=== PATIENT | male | born 1940 | race Caucasian/White ===

== ENCOUNTER 2022-08-12 21:08 | Emergency (ER) | payer OTHER ==
[~2022-08-12] VITALS: Ht 160 cm; Wt 73.9 kg
[2022-08-12 21:30] VITALS: BP_SYST 173
--- NOTE | 2022-08-12 21:44 | NUR ---
Patient triaged and placed in waiting room. VSS and patient appears in no acute distress at this time. Accompanied by SELF, awaiting available bed, and MD notified of need for MSE.
--- NOTE | 2022-08-12 22:37 | NUR ---
DR. ALVAREZ SEEING PATIENT IN TRIAGE ROOM
--- NOTE | 2022-08-12 23:00 | NUR ---
Patient to ER bed 07 to gown for evaluation. Side rails up. Report given to LUCY SWARTZ.
[2022-08-12 23:02] LABS: BASOPHILS % (AUTO) 0.5 % (0.0-2.0); EOSINOPHILS # (AUTO) 0.1 K/uL (0.0-0.4); EOSINOPHILS % (AUTO) 2.5 % (0.0-4.0); HEMATOCRIT 40.4 % (36-54); HEMOGLOBIN 13.2 g/dL (14.0-18.0); LYMPHOCYTES # (AUTO) 1.7 K/uL (1.0-5.5); LYMPHOCYTES % (AUTO) 30.1 % (20.5-51.5); MEAN CORPUSCULAR HEMOGLOBIN 27 pg (27-31); MEAN CORPUSCULAR HGB CONC 33 % (32-36); MEAN CORPUSCULAR VOLUME 84 fL (79.0-98.0); MONOCYTES # (AUTO) 0.5 K/uL (0.0-1.0); MONOCYTES % (AUTO) 8.6 % (1.7-9.3); NEUTROPHILS # (AUTO) 3.3 K/uL (1.8-7.7); NEUTROPHILS % (AUTO) 58.3 % (40.0-70.0); PLATELET COUNT (AUTO) 177 K/uL (130-430); RED BLOOD CELL COUNT(AUTO) 4.83 MIL/uL (4.2-6.2); RED CELL DISTRIBUTION WIDTH 15.4 % (9.0-15.0); WHITE BLOOD COUNT (AUTO) 5.6 K/uL (4.8-10.8)
[2022-08-12 23:14] LABS: ALANINE AMINOTRANSFERASE 32 U/L (12-78); ALBUMIN 3.9 g/dL (3.4-4.8); ANION GAP 9 (5-15); ASPARTATE AMINOTRANSFERASE 25 U/L (10-37); CALCIUM 8.8 mg/dL (8.4-11.0); CHLORIDE 101 mmol/L (98-107); CREATININE 1.93 mg/dL (0.55-1.30); GLUCOSE 106 mg/dL (70-99); LIPASE 199 U/L (73-393); TOTAL BILIRUBIN 0.3 mg/dL (0.0-1.0); UREA NITROGEN, BLOOD 32 mg/dL (8-21)
[2022-08-13 01:11] VITALS: BP_SYST 152
--- NOTE | 2022-08-13 01:11 | NUR ---
Patient given written and verbal discharge instructions and verbalizes understanding. ER MD discussed with patient the results and treatment provided. Patient in stable condition. ID arm band removed. NO RX GIVEN. Patient educated on pain management and to follow up with PMD. Pain Scale 0/10 Opportunity for questions provided and answered.
== END 2022-08-13 01:11 | disposition home or self-care (01) ==
LOC: SED 21:08
DX: K62.5 Hemorrhage of anus and rectum (principal); R10.32 Left lower quadrant pain; R19.7 Diarrhea, unspecified; R06.02 Shortness of breath; I10 Essential (primary) hypertension; Z88.8 Allergy status to other drugs, medicaments and biological substances; Z79.899 Other long term (current) drug therapy
CPT/HCPCS: 36415; 70490; 76376; 80053; 83605; 83690; 85025; 99284

== ENCOUNTER 2022-09-02 08:46 | Inpatient (IN) | payer OTHER ==
[~2022-09-02] VITALS: Ht 160 cm; Wt 75.7 kg
[2022-09-02 09:00] VITALS: BP_SYST 161
[2022-09-02 10:19] LABS: BASOPHILS % (AUTO) 0.3 % (0.0-2.0); EOSINOPHILS % (AUTO) 0.5 % (0.0-4.0); HEMATOCRIT 34.9 % (36-54); HEMOGLOBIN 11.6 g/dL (14.0-18.0); LYMPHOCYTES # (AUTO) 1.5 K/uL (1.0-5.5); LYMPHOCYTES % (AUTO) 27.8 % (20.5-51.5); MEAN CORPUSCULAR HEMOGLOBIN 28 pg (27-31); MEAN CORPUSCULAR HGB CONC 33 % (32-36); MEAN CORPUSCULAR VOLUME 83 fL (79.0-98.0); MONOCYTES # (AUTO) 0.3 K/uL (0.0-1.0); MONOCYTES % (AUTO) 5.3 % (1.7-9.3); NEUTROPHILS # (AUTO) 3.6 K/uL (1.8-7.7); NEUTROPHILS % (AUTO) 66.1 % (40.0-70.0); PLATELET COUNT (AUTO) 187 K/uL (130-430); RED BLOOD CELL COUNT(AUTO) 4.19 MIL/uL (4.2-6.2); RED CELL DISTRIBUTION WIDTH 15.3 % (9.0-15.0); WHITE BLOOD COUNT (AUTO) 5.4 K/uL (4.8-10.8)
[2022-09-02 10:39] LABS: ANION GAP 8 (5-15); CALCIUM 8.3 mg/dL (8.4-11.0); CHLORIDE 105 mmol/L (98-107); CREATININE 1.03 mg/dL (0.55-1.30); GLUCOSE 90 mg/dL (70-99); UREA NITROGEN, BLOOD 16 mg/dL (8-21)
[2022-09-02 10:43] LABS: ALANINE AMINOTRANSFERASE 29 U/L (12-78); ALBUMIN 3.1 g/dL (3.4-4.8); AMYLASE 49 U/L (0-100); ASPARTATE AMINOTRANSFERASE 21 U/L (10-37); LIPASE 104 U/L (73-393); TOTAL BILIRUBIN 0.4 mg/dL (0.0-1.0)
[2022-09-02 11:35] LABS: INR 1.1 (0.80-1.20); PROTHROMBIN TIME 11.6 SECS (9.5-12.5)
[2022-09-02] MEDS ORDERED: D5/0.45 NS 1,000 ML IV ONE (12:15)
[2022-09-02] MEDS ORDERED: TAMS-11 PO (12:17)
[2022-09-02] MEDS ORDERED: LEVO75TA7 PO (12:17)
[2022-09-02] MEDS ORDERED: FENO160 PO (12:17)
[2022-09-02] MEDS ORDERED: ESOM40CA PO (12:17)
[2022-09-02] MEDS ORDERED: ASPI-1393 PO (12:17)
[2022-09-02] MEDS ORDERED: LOSA100T4 PO (12:17)
[2022-09-02 14:19] VITALS: BP_SYST 161
[2022-09-02 16:00] VITALS: BP_SYST 142
[2022-09-02 20:00] VITALS: BP_SYST 157
[2022-09-03] VITALS: BP_SYST 139
[2022-09-03 07:50] VITALS: BP_SYST 145
[2022-09-03] MEDS ORDERED: ACETAMINOPHEN 325 MG TABLET PO PRN (11:00)
[2022-09-03] MEDS ORDERED: ONDANSETRON HCL 4 MG/2 ML VIAL IVP PRN (11:00)
[2022-09-03] MEDS ORDERED: HYDROcodone/ACETAMIN 10-325 MG TAB PO PRN (11:00)
[2022-09-03] MEDS ORDERED: LORazepam 2 MG/ML VIAL IVP PRN (11:00)
[2022-09-03] MEDS ORDERED: NALOXONE HCL 0.4 MG/ML AMP (NARCAN) IVP PRN ×2 (11:00)
[2022-09-03] MEDS ORDERED: HYDROcodone/ACETAMIN 5-325 MG TAB (NORCO/ VICODIN) PO PRN (11:00)
[2022-09-03 11:17] VITALS: BP_SYST 147
[2022-09-03] MEDS ORDERED: LOSARTAN POTASSIUM 50 MG TABLET (COZAAR) PO ONE (16:30)
[2022-09-03 17:18] VITALS: BP_SYST 150
[2022-09-04] VITALS: BP_SYST 149
[2022-09-04] MEDS: LEVOTHYROXINE SODIUM 0.075 MG TABLET PO SCH (06:28)
[2022-09-04 07:14] LABS: BASOPHILS % (AUTO) 0.4 % (0.0-2.0); EOSINOPHILS # (AUTO) 0.1 K/uL (0.0-0.4); EOSINOPHILS % (AUTO) 1.3 % (0.0-4.0); HEMATOCRIT 35.4 % (36-54); HEMOGLOBIN 11.9 g/dL (14.0-18.0); LYMPHOCYTES # (AUTO) 2.2 K/uL (1.0-5.5); LYMPHOCYTES % (AUTO) 34.3 % (20.5-51.5); MEAN CORPUSCULAR HEMOGLOBIN 28 pg (27-31); MEAN CORPUSCULAR HGB CONC 34 % (32-36); MEAN CORPUSCULAR VOLUME 83 fL (79.0-98.0); MONOCYTES # (AUTO) 0.6 K/uL (0.0-1.0); MONOCYTES % (AUTO) 9.1 % (1.7-9.3); NEUTROPHILS # (AUTO) 3.5 K/uL (1.8-7.7); NEUTROPHILS % (AUTO) 54.9 % (40.0-70.0); PLATELET COUNT (AUTO) 180 K/uL (130-430); RED BLOOD CELL COUNT(AUTO) 4.29 MIL/uL (4.2-6.2); WHITE BLOOD COUNT (AUTO) 6.5 K/uL (4.8-10.8)
[2022-09-04 07:45] LABS: ALANINE AMINOTRANSFERASE 30 U/L (12-78); ALBUMIN 2.9 g/dL (3.4-4.8); ANION GAP 8 (5-15); ASPARTATE AMINOTRANSFERASE 25 U/L (10-37); CALCIUM 8.2 mg/dL (8.4-11.0); CHLORIDE 103 mmol/L (98-107); CREATININE 1.09 mg/dL (0.55-1.30); GLUCOSE 95 mg/dL (70-99); TOTAL BILIRUBIN 0.5 mg/dL (0.0-1.0); UREA NITROGEN, BLOOD 10 mg/dL (8-21)
[2022-09-04 08:17] VITALS: BP_SYST 147
[2022-09-04] MEDS: ASPIRIN 81 MG TABLET(ECOTRIN) PO SCH (08:34)
[2022-09-04] MEDS: TAMSULOSIN HCL 0.4 MG CAP PO SCH (08:35)
[2022-09-04] MEDS: FENOFIBRATE 160 MG TABLET PO SCH (08:35)
[2022-09-04] MEDS: PANTOPRAZOLE SODIUM 40 MG TAB PO SCH (08:36)
[2022-09-04] MEDS: LOSARTAN POTASSIUM 50 MG TABLET (COZAAR) PO SCH (08:38)
[2022-09-04] MEDS ORDERED: OMEPRAZOLE Non-Formulary 20 MG CAPSULE.DR PO SCH (09:00)
[2022-09-04] MEDS ORDERED: POTASSIUM CHLORIDE 20 MEQ TAB.PRT.SR PO ONE (09:30)
[2022-09-04 15:00] VITALS: BP_SYST 129
[2022-09-04] MEDS: guaiFENesin/DEXTROMETHORPHAN 10 ML UDC PO PRN ×2 (18:25→22:28)
[2022-09-05] VITALS: BP_SYST 139
[2022-09-05] MEDS: LEVOTHYROXINE SODIUM 0.075 MG TABLET PO SCH (06:41)
[2022-09-05 07:02] LABS: BASOPHILS % (AUTO) 0.3 % (0.0-2.0); EOSINOPHILS # (AUTO) 0.2 K/uL (0.0-0.4); EOSINOPHILS % (AUTO) 2.2 % (0.0-4.0); LYMPHOCYTES # (AUTO) 2.6 K/uL (1.0-5.5); LYMPHOCYTES % (AUTO) 34.6 % (20.5-51.5); MEAN CORPUSCULAR HEMOGLOBIN 28 pg (27-31); MEAN CORPUSCULAR HGB CONC 33 % (32-36); MEAN CORPUSCULAR VOLUME 83 fL (79.0-98.0); MONOCYTES # (AUTO) 0.6 K/uL (0.0-1.0); MONOCYTES % (AUTO) 7.8 % (1.7-9.3); NEUTROPHILS # (AUTO) 4.2 K/uL (1.8-7.7); NEUTROPHILS % (AUTO) 55.1 % (40.0-70.0); PLATELET COUNT (AUTO) 178 K/uL (130-430); RED BLOOD CELL COUNT(AUTO) 4.37 MIL/uL (4.2-6.2); RED CELL DISTRIBUTION WIDTH 15.1 % (9.0-15.0); WHITE BLOOD COUNT (AUTO) 7.6 K/uL (4.8-10.8)
[2022-09-05 07:39] LABS: ANION GAP 7 (5-15); CALCIUM 8.3 mg/dL (8.4-11.0); CHLORIDE 106 mmol/L (98-107); CREATININE 1.08 mg/dL (0.55-1.30); GLUCOSE 98 mg/dL (70-99); UREA NITROGEN, BLOOD 8 mg/dL (8-21)
[2022-09-05 08:35] VITALS: BP_SYST 137
[2022-09-05] MEDS: FENOFIBRATE 160 MG TABLET PO SCH (09:47)
[2022-09-05] MEDS: TAMSULOSIN HCL 0.4 MG CAP PO SCH (09:47)
[2022-09-05] MEDS: LOSARTAN POTASSIUM 50 MG TABLET (COZAAR) PO SCH (09:47)
[2022-09-05] MEDS: ASPIRIN 81 MG TABLET(ECOTRIN) PO SCH (09:48)
[2022-09-05] MEDS: PANTOPRAZOLE SODIUM 40 MG TAB PO SCH (09:48)
[2022-09-05] MEDS: guaiFENesin/DEXTROMETHORPHAN 10 ML UDC PO PRN ×2 (10:52→20:10)
[2022-09-05 12:03] VITALS: BP_SYST 149
[2022-09-05 20:00] VITALS: BP_SYST 152
[2022-09-06 02:33] VITALS: BP_SYST 146
[2022-09-06] MEDS: LEVOTHYROXINE SODIUM 0.075 MG TABLET PO SCH (06:39)
[2022-09-06 08:00] VITALS: BP_SYST 154
[2022-09-06] MEDS: PANTOPRAZOLE SODIUM 40 MG TAB PO SCH (09:56)
[2022-09-06] MEDS: TAMSULOSIN HCL 0.4 MG CAP PO SCH (09:56)
[2022-09-06] MEDS: FENOFIBRATE 160 MG TABLET PO SCH (09:56)
[2022-09-06] MEDS: ASPIRIN 81 MG TABLET(ECOTRIN) PO SCH (09:56)
[2022-09-06] MEDS: LOSARTAN POTASSIUM 50 MG TABLET (COZAAR) PO SCH (09:57)
[2022-09-06 14:41] VITALS: BP_SYST 146
[2022-09-06 20:00] VITALS: BP_SYST 147
[2022-09-06] MEDS: guaiFENesin/DEXTROMETHORPHAN 10 ML UDC PO PRN (20:03)
[2022-09-07] VITALS: BP_SYST 124
[2022-09-07] MEDS: LEVOTHYROXINE SODIUM 0.075 MG TABLET PO SCH (06:37)
[2022-09-07 08:00] VITALS: BP_SYST 139
[2022-09-07] MEDS: TAMSULOSIN HCL 0.4 MG CAP PO SCH (09:55)
[2022-09-07] MEDS: PANTOPRAZOLE SODIUM 40 MG TAB PO SCH (09:56)
[2022-09-07] MEDS: ASPIRIN 81 MG TABLET(ECOTRIN) PO SCH (09:56)
[2022-09-07] MEDS: FENOFIBRATE 160 MG TABLET PO SCH (09:56)
[2022-09-07] MEDS: LOSARTAN POTASSIUM 50 MG TABLET (COZAAR) PO SCH (09:57)
[2022-09-07 12:00] VITALS: BP_SYST 132
[2022-09-07] MEDS: guaiFENesin/DEXTROMETHORPHAN 10 ML UDC PO PRN ×2 (14:59→22:18)
[2022-09-07 20:00] VITALS: BP_SYST 136
[2022-09-08] VITALS: BP_SYST 128
[2022-09-08] MEDS: LEVOTHYROXINE SODIUM 0.075 MG TABLET PO SCH (06:19)
[2022-09-08 06:35] LABS: BASOPHILS % (AUTO) 0.5 % (0.0-2.0); EOSINOPHILS # (AUTO) 0.1 K/uL (0.0-0.4); EOSINOPHILS % (AUTO) 2.4 % (0.0-4.0); HEMATOCRIT 34.3 % (36-54); HEMOGLOBIN 11.5 g/dL (14.0-18.0); LYMPHOCYTES # (AUTO) 2.3 K/uL (1.0-5.5); LYMPHOCYTES % (AUTO) 41.4 % (20.5-51.5); MEAN CORPUSCULAR HEMOGLOBIN 27 pg (27-31); MEAN CORPUSCULAR HGB CONC 33 % (32-36); MEAN CORPUSCULAR VOLUME 82 fL (79.0-98.0); MONOCYTES # (AUTO) 0.3 K/uL (0.0-1.0); NEUTROPHILS # (AUTO) 2.8 K/uL (1.8-7.7); NEUTROPHILS % (AUTO) 49.7 % (40.0-70.0); PLATELET COUNT (AUTO) 188 K/uL (130-430); RED CELL DISTRIBUTION WIDTH 15.2 % (9.0-15.0); WHITE BLOOD COUNT (AUTO) 5.5 K/uL (4.8-10.8)
[2022-09-08 08:00] VITALS: BP_SYST 143
[2022-09-08] MEDS: ASPIRIN 81 MG TABLET(ECOTRIN) PO SCH (08:28)
[2022-09-08] MEDS: TAMSULOSIN HCL 0.4 MG CAP PO SCH (08:28)
[2022-09-08] MEDS: FENOFIBRATE 160 MG TABLET PO SCH (08:29)
[2022-09-08] MEDS: PANTOPRAZOLE SODIUM 40 MG TAB PO SCH (08:29)
[2022-09-08] MEDS: LOSARTAN POTASSIUM 50 MG TABLET (COZAAR) PO SCH (08:29)
[2022-09-08 20:00] VITALS: BP_SYST 137
[2022-09-09 04:00] VITALS: BP_SYST 155
[2022-09-09 06:13] LABS: BILIRUBIN,URINE NEGATIVE (NEGATIVE); BLOOD, URINE TRACE (NEGATIVE); CLARITY/URINE CLEAR (CLEAR); COLOR,URINE YELLOW (YELLOW); GLUCOSE,URINE NEGATIVE (NEGATIVE); KETONES,URINE NEGATIVE (NEGATIVE); LEUKOCYTE ESTERASE ,URINE NEGATIVE (NEGATIVE); NITRITE, URINE NEGATIVE (NEGATIVE); PROTEIN URINE TRACE (NEGATIVE)
[2022-09-09 06:20] LABS: BACTERIA,URINE None Seen /HPF (None Seen); WBC,URINE 0-3 /HPF (0-3)
[2022-09-09] MEDS: LEVOTHYROXINE SODIUM 0.075 MG TABLET PO SCH (06:35)
[2022-09-09 06:52] LABS: BASOPHILS % (AUTO) 0.5 % (0.0-2.0); EOSINOPHILS # (AUTO) 0.2 K/uL (0.0-0.4); EOSINOPHILS % (AUTO) 2.9 % (0.0-4.0); HEMATOCRIT 32.8 % (36-54); LYMPHOCYTES % (AUTO) 38.5 % (20.5-51.5); MEAN CORPUSCULAR HEMOGLOBIN 28 pg (27-31); MEAN CORPUSCULAR HGB CONC 34 % (32-36); MEAN CORPUSCULAR VOLUME 82 fL (79.0-98.0); MONOCYTES # (AUTO) 0.3 K/uL (0.0-1.0); NEUTROPHILS # (AUTO) 2.7 K/uL (1.8-7.7); NEUTROPHILS % (AUTO) 52.1 % (40.0-70.0); PLATELET COUNT (AUTO) 196 K/uL (130-430); RED CELL DISTRIBUTION WIDTH 14.9 % (9.0-15.0); WHITE BLOOD COUNT (AUTO) 5.3 K/uL (4.8-10.8)
[2022-09-09 07:16] LABS: ALANINE AMINOTRANSFERASE 43 U/L (12-78); ALBUMIN 2.5 g/dL (3.4-4.8); ANION GAP 7 (5-15); ASPARTATE AMINOTRANSFERASE 35 U/L (10-37); CALCIUM 8.2 mg/dL (8.4-11.0); CHLORIDE 107 mmol/L (98-107); CREATININE 1.04 mg/dL (0.55-1.30); GLUCOSE 91 mg/dL (70-99); TOTAL BILIRUBIN 0.5 mg/dL (0.0-1.0); UREA NITROGEN, BLOOD 10 mg/dL (8-21)
[2022-09-09 08:00] VITALS: BP_SYST 149
[2022-09-09] MEDS ORDERED: POTASSIUM CHLORIDE 40 MEQ in NS 250 ML IV ONE (08:45)
[2022-09-09] MEDS: ASPIRIN 81 MG TABLET(ECOTRIN) PO SCH (09:00)
[2022-09-09] MEDS: PANTOPRAZOLE SODIUM 40 MG TAB PO SCH (09:15)
[2022-09-09] MEDS: TAMSULOSIN HCL 0.4 MG CAP PO SCH (09:15)
[2022-09-09] MEDS: FENOFIBRATE 160 MG TABLET PO SCH (09:16)
[2022-09-09] MEDS: LOSARTAN POTASSIUM 50 MG TABLET (COZAAR) PO SCH (09:17)
[2022-09-09 11:25] VITALS: BP_SYST 133
[2022-09-09] MEDS ORDERED: POTASSIUM CHLORIDE 20 MEQ TAB.PRT.SR PO ONE (14:00)
[2022-09-09 15:47] VITALS: BP_SYST 147
[2022-09-09 20:00] VITALS: BP_SYST 147
[2022-09-10 04:00] VITALS: BP_SYST 153
[2022-09-10] MEDS: LEVOTHYROXINE SODIUM 0.075 MG TABLET PO SCH (06:48)
[2022-09-10] MEDS: FENOFIBRATE 160 MG TABLET PO SCH (08:46)
[2022-09-10] MEDS: LOSARTAN POTASSIUM 50 MG TABLET (COZAAR) PO SCH (08:46)
[2022-09-10] MEDS: TAMSULOSIN HCL 0.4 MG CAP PO SCH (08:46)
[2022-09-10] MEDS: PANTOPRAZOLE SODIUM 40 MG TAB PO SCH (08:47)
[2022-09-10] MEDS: ASPIRIN 81 MG TABLET(ECOTRIN) PO SCH (08:47)
[2022-09-10 10:57] VITALS: BP_SYST 145
[2022-09-10 11:06] VITALS: BP_SYST 137
== END 2022-09-10 12:45 | disposition home health service (06) | DRG 375 ==
LOC: SED 08:46 → SMU 12:09
PROVIDERS: ADMIT Specialist; ATTEND Specialist
DX: C18.9 Malignant neoplasm of colon, unspecified (principal); E44.1 Mild protein-calorie malnutrition; K62.5 Hemorrhage of anus and rectum; I10 Essential (primary) hypertension; E88.09 Other disorders of plasma-protein metabolism, not elsewhere classified; N40.0 Benign prostatic hyperplasia without lower urinary tract symptoms; E03.9 Hypothyroidism, unspecified; E78.5 Hyperlipidemia, unspecified; K74.60 Unspecified cirrhosis of liver; E83.52 Hypercalcemia; E83.51 Hypocalcemia; D64.9 Anemia, unspecified; E87.5 Hyperkalemia; K29.70 Gastritis, unspecified, without bleeding; Z20.822 Contact with and (suspected) exposure to COVID-19; Z85.21 Personal history of malignant neoplasm of larynx; Z79.82 Long term (current) use of aspirin; Z79.899 Other long term (current) drug therapy; Z88.8 Allergy status to other drugs, medicaments and biological substances
CPT/HCPCS: 36415; 71045; 76376; 80048; 80053; 81000; 82150; 82378; 83605; 83690; 85025; 85610-TC; 85730-TC; 86886; 86900; 86901; 87081; 93005; 99285; J3480; J7050